=== PATIENT | female | born 1935 | race Caucasian/White ===

== ENCOUNTER 2018-07-22 14:44 | Outpatient (CLI) | payer MEDICARE, BC ==
[2018-07-22 16:28] LABS: #Eosinphils 0.2 thou/uL (0.0-0.7); #Monocytes 0.8 thou/uL (0.11-0.59); #Neutrophils 4.3 thou/uL (1.40-6.50); %Basophils 0.2 % (0.0-1.0); %Eosinophils 2.2 % (0.0-10.0); %Lymphocytes 36.3 % (21.0-51.0); %Neutrophils 51.3 % (42.0-75.0); Hemoglobin 13.5 g/dL (12.0-16.0); Mean Corpuscular HGB CONC 33.2 g/dL (32.0-36.0); Mean Corpuscular Hemoglobin 28.4 pg (27.0-31.0); Mean Corpuscular Volume 85.6 fL (78.0-98.0); Platelet Count 202 thou/uL (130-400); RBC Distribution Width 12.6 % (11.5-14.5); Red Blood Cell (RBC) Count 4.74 mill/uL (4.20-5.40); White Blood Cell (WBC) Count 8.3 thou/uL (4.8-10.8)
[2018-07-22 16:29] LABS: Bilirubin Negative (Negative); Blood, Urine Trace (Negative); Clarity CLEAR (Clear); Glucose, Urine (Dipstick) Negative (Negative); Leukocyte Trace (Negative); Nitrite Negative (Negative); Protein, Urine (Dipstick) Negative (Neg-Trace); Specific Gravity, Urine 1.017 (1.002-1.036); pH, Urine 6.5 (5.0-9.0)
[2018-07-22 16:31] LABS: Bacteria/HPF None Seen HPF (None Seen); Hyaline Casts/LPF 0-3 HYALINE CAST LPF (0-3 Hyaline); Pathc Cast-AUWi Flag 0.67 (0-2.49); Squamous Epithelial 0-3 HPF (0-3); WBC/HPF 0-3 HPF (0-3)
[2018-07-22 16:32] LABS: Prothrombin Time 13.5 SEC (12.0-14.7)
[2018-07-22 16:51] LABS: Anion Gap 15 mmol/L (10-20); BUN (Urea Nitrogen) 18 mg/dL (9.8-20.1); Calc. Creatinine Clearance 0 mL/min (70-130); Carbon Dioxide 23 mmol/L (23-31); Chloride 104 mmol/L (98-107); Estimated GFR-MDRD 65; Glucose 77 mg/dL (83-110); Potassium 3.9 mmol/L (3.5-5.1); Sodium 138 mmol/L (136-145)
== END 2018-07-22 14:45 | disposition home or self-care (01) ==
LOC: LABBT 14:44
PROVIDERS: ATTEND Orthopaedic Surgery
DX: Z01.818 Encounter for other preprocedural examination (principal); M17.11 Unilateral primary osteoarthritis, right knee
CPT/HCPCS: 80048; 81001; 85025; 85610; 93005; 93010

== ENCOUNTER 2018-07-29 08:07 | Inpatient (IN) | payer MEDICARE, BC ==
[2018-07-29] MEDS ORDERED: Tranexamic Acid 1,000 MG/10 ML VIAL ONE (08:39)
[2018-07-29] MEDS ORDERED: Midazolam HCl 2 mg/2 ml Vial ONE (08:45)
[2018-07-29] MEDS ORDERED: Vancomycin HCl 1.5 GM in Sodium Chloride 0.9% 250 ML 300 ML IVPB SCH (08:45)
[2018-07-29] MEDS ORDERED: Fentanyl 100 MCG/2 ML VIAL ONE ×3 (08:45→12:19)
[2018-07-29] MEDS ORDERED: Ketorolac Tromethamine 30 MG/ML VIAL IVP PRN (09:44)
[2018-07-29] MEDS ORDERED: traMADol HCl 50 MG TAB PO PRN (09:44)
[2018-07-29] MEDS ORDERED: Promethazine HCl 25 MG/ML VIAL IM PRN ×2 (09:44→09:52)
[2018-07-29] MEDS ORDERED: Ondansetron PF 4 MG/2 ML Vial IVP PRN ×2 (09:44→09:52)
[2018-07-29] MEDS ORDERED: Zolpidem Tartrate 5 MG TAB PO PRN ×2 (09:44→09:52)
[2018-07-29] MEDS ORDERED: HYDROcodone/Acetaminophen 7.5/325 mg Tablet PO PRN (09:45)
[2018-07-29] MEDS ORDERED: Fentanyl 100 MCG/2 ML VIAL SLOW IVP PRN (09:46)
[2018-07-29] MEDS ORDERED: Acetaminophen 325 MG TAB PO PRN (09:52)
[2018-07-29] MEDS ORDERED: diphenhydrAMINE 25 MG CAP PO PRN (09:52)
--- NOTE | 2018-07-29 12:03 | OP ---
DATE OF PROCEDURE: 07/29/2018 PREOPERATIVE DIAGNOSIS: Degenerative joint disease, right knee. POSTOPERATIVE DIAGNOSIS: Degenerative joint disease, right knee. MATERIAL LIAISON: Weston. BLOOD LOSS: Minimal. SPECIMEN: None. DRAIN: None. COMPLICATION: None. TOURNIQUET TIME: 45 minutes. IMPLANTS USED: [place] triathlon 4 femur, 3 tibia, 9 mm CS X3 polyethylene size 3, and A29 patella. PROCEDURE IN DETAIL: After informed consent was obtained in the preoperative holding area, the patient was taken to the operative suite where general anesthesia was induced. Once adequate level of general anesthesia was obtained, the patient was positioned and a well-padded tourniquet was placed around the right proximal thigh. The right lower extremity was then prepped and draped in the usual sterile fashion. Prior to exsanguination, a time-out was called and all members of the surgical team agreed upon site, surgeon, and patient. The extremity was then exsanguinated and the tourniquet was raised. A midline longitudinal incision was then made directly over the patella extending 2 fingerbreadths above the superior pole of the patella and 2 fingerbreadths inferior to the inferior patellar pole of the patella. Deeper subcutaneous layers were dissected sharply and local bleeding was controlled with Bovie electrocautery. A quad tendon longitudinal split was then made sharply and a median parapatellar arthrotomy was carried out both sharp and with Bovie electrocautery, carried down to 1 fingerbreadth medial to the tibial tubercle. The knee was then placed into flexion and the patella was everted nicely, and a copious fat pad ectomy was performed allowing for greater exposure of the tibia. The computer-assisted distal femoral fiducial was then placed and pinned firmly, and the distal femoral cutting guide was pinned firmly into place. The oscillating saw was then used to remove the appropriate amount of bone. The 4-in-1 cutting block was then placed on the distal femur and the oscillating saw was used to remove the appropriate amount of bone off the anterior, posterior, and chamfer cuts. After completion of bone cuts, the anterior cruciate ligament was resected sharply and the posterior cruciate ligament retractor was placed and the tibia was subluxed for better exposure. Partial meniscectomies were carried out, and the tibial computer-assisted fiducial was pinned, and the cutting guide was placed. Oscillating saw was then used to remove the bone, with Hohmann retractors used to take care and protect the collateral ligaments. After the tibial resection was performed, a laminar rrt was placed in between the freshened bone cuts. The knee placed at 90 degrees and further bilateral meniscectomies were carried out, and the curved osteotome and curettage were used to remove any excess bone spurs in the posterior compartment. The trial femoral component, tibial baseplate were placed with the appropriate polyethylene trial insert with an appropriate polyethylene spacer and patellar button. The knee was taken through full range of motion with flexion and extension from 0 to 90 degrees and patellar broach squarely in the trochlea without any squinting or subluxation noted. The knee was also stable to varus and valgus stressing at 0, 15, 45, and 90 degrees of flexion. The drawer was negative. All trial components were then removed and the keel punch was used to provide the appropriate defect in the tibia with a mallet. The freshened bone cuts were copiously irrigated with pulsatile lavage of about 1.5 L to remove all excess debris. The freshened bone cuts were then dried with suction and lap sponge. The knee was placed in flexion and retractors were placed to provide access to all bone cuts. Tobramycin-impregnated methyl methacrylate cement was then placed on the freshened bone cuts and implants which were malleted firmly into place. Curettage and [place]ga elevators were used to remove any excess bone cement. The knee was placed into full extension and the patellar button was placed under compression, and the cement was allowed to cure. Once completed, the components were again taken through full range of motion and copious irrigation of the knee was carried out with another liter of normal saline. All components were inspected fully with full range of motion and varus and valgus stressing. There was no laxity noted and full extension was observed clinically. Primary closure was accomplished with #2 interrupted Vicryl stitch of the arthrotomy defect. This was oversewn with a #2 running Quill barbed stitch. The gravitational platelet system was then injected into the arthrotomy prior to closure. The subcutaneous layer was then closed with a running 0 barbed Monocryl stitch and skin closure accomplished with a running subcuticular 3-0 Monocryl barbed Quill stitch and augmented with cement on the skin. Tourniquet was lowered. Good spontaneous return of distal pulses was noted clinically and a sterile dressing was applied to the incision. The procedure was terminated without any complications. The patient was awakened in the operative suite and the was removed, and the patient was taken to the recovery room in stable condition. Job ID: [id number]
[2018-07-29] MEDS ORDERED: Ketorolac Tromethamine 30 MG/ML VIAL ONE (12:19)
[2018-07-29] MEDS ORDERED: Ropivacaine 0.5% HCl/PF (150 MG/30 ML VIAL) ONE (12:58)
[2018-07-29] MEDS ORDERED: Ropivacaine 0.2% HCl/PF (40 MG/20 ML VIAL) ONE (12:58)
--- NOTE | 2018-07-29 12:59 | RAD ---
RIGHT KNEE 2 VIEWS: HISTORY: Total knee arthroplasty, postop FINDINGS: There are recent postoperative changes of total knee arthroplasty in good position and alignment. Sof t tissue air is present.
[2018-07-29] MEDS ORDERED: Ondansetron PF 4 MG/2 ML Vial ONE (13:43)
[2018-07-29] MEDS ORDERED: PROPOFOL 200 MG/20 ML VIAL ONE (13:43)
[2018-07-29] MEDS ORDERED: Lidocaine 1% PF 5 ML VIAL ONE (13:43)
[2018-07-29] MEDS: Sodium Chloride 0.9% 1,000 ML IV SCH ×2 (14:51→16:40)
[2018-07-29] MEDS: CEFAZOLIN 2 GM in Premix Bag 1 BAG IVPB SCH (16:39)
[2018-07-29] MEDS: Aspirin 81 mg Enteric Coated Tablet PO SCH (21:05)
[2018-07-29] MEDS: Atorvastatin Calcium 10 MG TAB PO SCH (21:05)
[2018-07-29] MEDS: Flecainide 50 MG TAB PO SCH (21:06)
[2018-07-30] MEDS: CEFAZOLIN 2 GM in Premix Bag 1 BAG IVPB SCH (00:05)
[2018-07-30] MEDS: traMADol HCl 50 MG TAB PO PRN (04:12)
[2018-07-30] MEDS: Sodium Chloride 0.9% 1,000 ML IV SCH (05:31)
[2018-07-30] MEDS: HYDROcodone/Acetaminophen 7.5/325 mg Tablet PO PRN ×3 (06:15→17:55)
[2018-07-30 07:43] LABS: Hemoglobin 11.2 g/dL (12.0-16.0); Mean Corpuscular HGB CONC 33.1 g/dL (32.0-36.0); Mean Corpuscular Hemoglobin 28.8 pg (27.0-31.0); Mean Corpuscular Volume 87.2 fL (78.0-98.0); Mean Platelet Volume 6.9 fL (7.4-10.4); Platelet Count 155 thou/uL (130-400); RBC Distribution Width 12.3 % (11.5-14.5)
[2018-07-30] MEDS ORDERED: Benzonatate 100 MG CAP PO PRN (08:46)
[2018-07-30] MEDS ORDERED: hydrALAZINE 20 MG/ML VIAL SLOW IVP PRN (08:46)
[2018-07-30] MEDS ORDERED: Cepastat Lozenges 1 LOZ PO PRN (08:46)
[2018-07-30] MEDS ORDERED: Calcium Carbonate 500 MG ChewTAB PO PRN (08:46)
[2018-07-30] MEDS ORDERED: cloNIDine 0.1 MG TAB PO PRN (08:46)
[2018-07-30] MEDS ORDERED: Bisacodyl 5 MG TAB PO PRN (08:46)
[2018-07-30] MEDS ORDERED: Diabetic Tussin 200 MG/10 ML UDCUP PO PRN (08:46)
[2018-07-30] MEDS ORDERED: Aspirin 81 mg Enteric Coated Tablet PO SCH (09:00)
[2018-07-30] MEDS: Ferrous Gluconate 324 MG TAB PO SCH ×2 (09:11→17:16)
[2018-07-30] MEDS: Flecainide 50 MG TAB PO SCH ×2 (09:56→20:23)
[2018-07-30] MEDS: Aspirin 81 mg Enteric Coated Tablet PO SCH ×2 (09:57→20:23)
[2018-07-30] MEDS: Senokot S 8.6-50 MG TAB PO SCH ×2 (09:57→20:23)
[2018-07-30] MEDS: Triamterene/Hydrochlorothiazide 37.5 mg/25 mg Tablet PO SCH (09:58)
[2018-07-30] MEDS: Multivitamin W/ Minerals 1 TAB PO SCH (09:58)
--- NOTE | 2018-07-30 10:31 | PRG ---
DATE OF SERVICE: 07/30/2018 SUBJECTIVE: Mariana is an 83-year-old female, who is postop day #1 from right total knee arthroplasty. I believe inpatient rehabilitation had already been consulted on this patient and that is the plan for her at the time of transfer. OBJECTIVE: VITAL SIGNS: Temperature 98.1, pulse 58, respiratory rate 14 and nonlabored, and blood pressure is 128/70. GENERAL: She is alert and oriented to person, place, time and situation, grossly nonfocal, appropriate and conversant with examiner. EXTREMITIES: Her incision is clean without erythema and she is neurovascularly intact in the right lower extremity. : Moffett is still intact. She does admit to having some little bit of constipation for the last couple of days and requests something to make her bowels move. IMPRESSION: 1. This is an 83-year-old female, postop day #1 right total knee arthroplasty. 2. Mild constipation. PLAN: Continue current care. Transfer on postop day #3. Job ID: [id number]
[2018-07-30] MEDS: Ropivacaine HCl/PF 250 ML in Premix Bag 1 BAG NERVE BLCK SCH (11:47)
--- NOTE | 2018-07-30 12:49 | PDOC.PN ---
- Subjective Encounter Start Date: 07/30/18 Encounter Start Time: 12:48 Subjective: s/p R TKR.seen during PT and c/o significant knee pain -: IM team consulted for medical managemant -: PCP is Dr. harris and laborer electroplating is Dr.Bao Rush - Objective MAR Reviewed: Yes Vital Signs & Weight: Vital Signs (12 hours) Temp Pulse Resp BP Pulse Ox 07/30/18 08:30 95 07/30/18 08:11 98.1 F 58 L 14 128/70 95 07/30/18 04:19 98.3 F 64 16 119/71 95 Weight Admit Weight 187 lb Weight 187 lb I&O: 07/29/18 07/30/18 07/31/18 06:59 06:59 06:59 Intake Total 2900 Output Total 725 Balance 2175 Result Diagrams: 07/30/18 07:25 Additional Labs: Microbiology 07/22/18 15:48 Mrsa Scrn Axilla,Groin,Nares Nasal Screen MRSA/MSSA - Final 07/22/18 15:48 Mrsa Scrn Axilla,Groin,Nares MRSA Screen - Final Negative--No MRSA Colonization Negative--No MRSA Colonization Negative--No MRSA Colonization Laboratory Tests 07/22/18 07/30/18 15:48 07:25 Hgb 13.5 11.2 L Phys Exam - Physical Examination Constitutional: NAD HEENT: PERRLA, moist MMs, sclera anicteric, oral pharynx no lesions Neck: no nodes, no JVD, supple, full ROM Respiratory: no wheezing, no rales, no rhonchi, clear to auscultation bilateral Cardiovascular: RRR, no significant murmur Gastrointestinal: soft, non-tender, no distention, positive bowel sounds Musculoskeletal: no edema, pulses present Neurological: non-focal, normal sensation, moves all 4 limbs Psychiatric: normal affect, A&O x 3 Skin: no rash Dx/Plan (1) Chronic atrial fibrillation Code(s): I48.2 - CHRONIC ATRIAL FIBRILLATION Status: Chronic Comment: stable. NSR.cont Flecainide and Toprol XL.monitor clinically (2) H/O supraventricular tachycardia Code(s): Z86.79 - PERSONAL HISTORY OF OTHER DISEASES OF THE CIRCULATORY SYSTEM Status: Chronic (3) MVP (mitral valve prolapse) Code(s): I34.1 - NONRHEUMATIC MITRAL (VALVE) PROLAPSE Status: Chronic (4) HTN (hypertension) Code(s): I10 - ESSENTIAL (PRIMARY) HYPERTENSION Status: Chronic Comment: cont maxzide,Toprol.add prn antihypertensives (5) GERD (gastroesophageal reflux disease) Code(s): K21.9 - GASTRO-ESOPHAGEAL REFLUX DISEASE WITHOUT ESOPHAGITIS Status: Chronic (6) S/P TKR (total knee replacement) Code(s): Z96.659 - PRESENCE OF UNSPECIFIED ARTIFICIAL KNEE JOINT Status: Acute Qualifiers: Laterality: right Qualified Code(s): Z96.651 - Presence of right artificial knee joint - Plan plan discussed w/ family, DVT proph w/SCDs add pain meds. HD stable -: cont home meds -: AM labs. follow H/H.expected drop today post-op -: IM team will follow * . Review of Systems - Review of Systems Constitutional: negative: fever, chills, sweats, weakness, malaise, other ENT: negative: Ear Pain, Ear Discharge, Nose Pain, Nose Discharge, Nose Congestion, Mouth Pain, Mouth Swelling, Throat Pain, Throat Swelling, Other Respiratory: negative: Cough, Dry, Shortness of Breath, Hemoptysis, SOB with Excertion, Pleuritic Pain, Sputum, Wheezing Cardiovascular: negative: chest pain, palpitations, orthopnea, paroxysmal nocturnal dyspnea, edema, light headedness, other Gastrointestinal: negative: Nausea, Vomiting, Abdominal Pain, Diarrhea, Constipation, Melena, Hematochezia, Other Genitourinary: negative: Dysuria, Frequency, Incontinence, Hematuria, Retention , Other Musculoskeletal: Other (knee pain). negative: Neck Pain, Shoulder Pain, Arm Pain, Back Pain, Hand Pain, Leg Pain, Foot Pain Skin: negative: Rash, Lesions, Kevin, Bruising, Other Neurological: negative: Weakness, Numbness, Incoordination, Change in Speech, Confusion, Seizures, Other - Medications/Allergies Allergies/Adverse Reactions: Allergies Allergy/AdvReac Type Severity Reaction Status Date / Time No Known Allergies Allergy Verified 07/22/18 15:01 Medications: Current Medications Acetaminophen (Tylenol) 650 mg PO Q4H PRN PRN Reason: Headache/Fever or Pain Last Admin: 07/30/18 00:09 Dose: 650 mg Hydrocodone Bitart/Acetaminophen ([place] 7.5/325) 1 tab PO Q4H PRN PRN Reason: Mild Pain (1-3) Hydrocodone Bitart/Acetaminophen ([place] 7.5/325) 2 tab PO Q4H PRN PRN Reason: Moderate Pain (4-6) Last Admin: 07/30/18 06:15 Dose: 2 tab Aspirin (Ecotrin) 81 mg PO BID [facility] Last Admin: 07/30/18 09:57 Dose: 81 mg Atorvastatin Calcium (Lipitor) 10 mg PO HS [facility] Last Admin: 07/29/18 21:05 Dose: 10 mg Benzonatate (Tessalon) 100 mg PO Q6H PRN PRN Reason: Cough Bisacodyl (Dulcolax) 10 mg PO DAILYPRN PRN PRN Reason: Constipation Calcium Carbonate (Tums) 1,000 mg PO Q4H PRN PRN Reason: Heartburn or Indigestion Clonidine (Catapres) 0.1 mg PO Q4H PRN PRN Reason: SBP > 160____ Diphenhydramine HCl (Benadryl) 25 mg PO Q6H PRN PRN Reason: Itching Fentanyl (Sublimaze) 50 mcg SLOW IVP Q1H PRN PRN Reason: breakthrough pain Ferrous Gluconate (Fergon) 324 mg PO BID[facility] Last Admin: 07/30/18 09:11 Dose: 324 mg Flecainide Acetate (Tambocor) 50 mg PO BID [facility] Last Admin: 07/30/18 09:56 Dose: 50 mg Guaifenesin (Robitussin Sf) 200 mg PO Q4H PRN PRN Reason: Cough Hydralazine HCl (Apresoline) 10 mg SLOW IVP Q4H PRN PRN Reason: SBP > 180 and HR < 70 Vancomycin HCl 1.5 gm/ Sodium (Chloride) 300 mls @ 200 mls/hr IVPB ONCALL-OR [facility] Ropivacaine 250 ml/ Device 250 mls @ 10 mls/hr NERVE BLCK INF [facility] Last Admin: 07/30/18 11:47 Dose: 250 mls Iron/Minerals/Multivitamins (Theragran M) 1 tab PO DAILY [facility] Last Admin: 07/30/18 09:58 Dose: 1 tab Ketorolac Tromethamine (Toradol) 15 mg IVP Q6H PRN PRN Reason: Moderate Pain (4-6) Stop: 08/01/18 09:45 Ondansetron HCl (Zofran) 4 mg IVP Q6H PRN PRN Reason: Nausea/Vomiting Promethazine HCl (Phenergan) 12.5 mg IM Q4H PRN PRN Reason: Nausea/Vomiting Senna/Docusate Sodium (Senokot S) 2 tab PO BID [facility] Last Admin: 07/30/18 09:57 Dose: 2 tab Sodium Chloride (Flush - Normal Saline) 10 ml IVF PRN PRN PRN Reason: Saline Flush Throat Lozenges (Cepastat Lozenges) 1 shorty PO Q2H PRN PRN Reason: Sore Throat Tramadol HCl (Ultram) 50 mg PO Q6H PRN PRN Reason: Mild Pain (1-3) Last Admin: 07/29/18 16:41 Dose: 50 mg Tramadol HCl (Ultram) 100 mg PO Q6H PRN PRN Reason: Moderate Pain 4-6 Last Admin: 07/30/18 04:12 Dose: 100 mg Triamterene/HCTZ (Maxzide-25) 1 tab PO QAM [facility] Last Admin: 07/30/18 09:58 Dose: 1 tab Zolpidem Tartrate (Ambien) 5 mg PO HSPRN PRN PRN Reason: Insomnia
[2018-07-30] MEDS: Atorvastatin Calcium 10 MG TAB PO SCH (20:23)
[2018-07-31 04:28] LABS: Hemoglobin 11.7 g/dL (12.0-16.0); Mean Corpuscular Hemoglobin 30.6 pg (27.0-31.0); Mean Corpuscular Volume 87.4 fL (78.0-98.0); Mean Platelet Volume 6.8 fL (7.4-10.4); Platelet Count 143 thou/uL (130-400); RBC Distribution Width 12.5 % (11.5-14.5); Red Blood Cell (RBC) Count 3.81 mill/uL (4.20-5.40); White Blood Cell (WBC) Count 9.8 thou/uL (4.8-10.8)
[2018-07-31 04:45] LABS: Anion Gap 10 mmol/L (10-20); BUN (Urea Nitrogen) 9 mg/dL (9.8-20.1); Calc. Creatinine Clearance 76 mL/min (70-130); Calcium 9.3 mg/dL (7.8-10.44); Carbon Dioxide 30 mmol/L (23-31); Chloride 101 mmol/L (98-107); Estimated GFR-MDRD 75; Glucose 89 mg/dL (83-110); Sodium 137 mmol/L (136-145)
[2018-07-31] MEDS: HYDROcodone/Acetaminophen 7.5/325 mg Tablet PO PRN (06:54)
[2018-07-31] MEDS: Flecainide 50 MG TAB PO SCH ×2 (09:01→20:11)
[2018-07-31] MEDS: Triamterene/Hydrochlorothiazide 37.5 mg/25 mg Tablet PO SCH (09:01)
[2018-07-31] MEDS: Multivitamin W/ Minerals 1 TAB PO SCH (09:01)
[2018-07-31] MEDS: Senokot S 8.6-50 MG TAB PO SCH ×2 (09:02→20:11)
[2018-07-31] MEDS: Ferrous Gluconate 324 MG TAB PO SCH ×2 (09:02→17:46)
[2018-07-31] MEDS: traMADol HCl 50 MG TAB PO PRN ×2 (09:09→14:21)
[2018-07-31] MEDS: Aspirin 81 mg Enteric Coated Tablet PO SCH ×2 (14:21→20:12)
[2018-07-31] MEDS: Ropivacaine HCl/PF 250 ML in Premix Bag 1 BAG NERVE BLCK SCH (14:27)
--- NOTE | 2018-07-31 15:13 | PDOC.EVN ---
Event Note - Event Note Event Note: Went to see pt but she is engaged in Group PT on [facility] floor chart reviewed. VSS and Lab WNL w mild drop in H/H Cont care as outlined yesterday. no changes made Ok to DC form IM stand point when Ok w Primary team Will follow
[2018-07-31 16:50] VITALS: BMI 36.5
[2018-07-31] MEDS: Atorvastatin Calcium 10 MG TAB PO SCH (20:11)
[2018-08-01] MEDS: traMADol HCl 50 MG TAB PO PRN ×2 (06:14→12:15)
[2018-08-01 06:29] LABS: Hemoglobin 11.5 g/dL (12.0-16.0); Mean Corpuscular HGB CONC 33.8 g/dL (32.0-36.0); Mean Corpuscular Hemoglobin 29.3 pg (27.0-31.0); Mean Corpuscular Volume 86.8 fL (78.0-98.0); Mean Platelet Volume 7.1 fL (7.4-10.4); Platelet Count 163 thou/uL (130-400); RBC Distribution Width 12.4 % (11.5-14.5); Red Blood Cell (RBC) Count 3.92 mill/uL (4.20-5.40); White Blood Cell (WBC) Count 8.5 thou/uL (4.8-10.8)
[2018-08-01 07:39] VITALS: BP 136/80; TEMP 97.6
[2018-08-01] MEDS: Senokot S 8.6-50 MG TAB PO SCH (08:08)
[2018-08-01] MEDS: Multivitamin W/ Minerals 1 TAB PO SCH (08:08)
[2018-08-01] MEDS: Triamterene/Hydrochlorothiazide 37.5 mg/25 mg Tablet PO SCH (08:08)
[2018-08-01] MEDS: Aspirin 81 mg Enteric Coated Tablet PO SCH (08:08)
[2018-08-01] MEDS: Ferrous Gluconate 324 MG TAB PO SCH (08:09)
[2018-08-01] MEDS: Flecainide 50 MG TAB PO SCH (12:15)
--- NOTE | 2018-08-01 19:18 | PDOC.EVN ---
Event Note - Event Note Event Note: Pt discharged by primary team.OK to DC from IM stand point.chart reviewed
== END 2018-08-01 15:21 | DRG 470 ==
LOC: SDC 08:07 → SJJU 09:52
PROVIDERS: ADMIT Orthopaedic Surgery; ATTEND Orthopaedic Surgery
PROC: 0SRC0J9 Replacement of Right Knee Joint with Synthetic Substitute, Cemented, Open Approach (ICD-10-PCS; principal; 2018-07-29)
DX: M17.11 Unilateral primary osteoarthritis, right knee (principal); K21.9 Gastro-esophageal reflux disease without esophagitis; I10 Essential (primary) hypertension; I48.2 Chronic atrial fibrillation; I34.1 Nonrheumatic mitral (valve) prolapse; Z96.652 Presence of left artificial knee joint; K59.00 Constipation, unspecified; Z86.79 Personal history of other diseases of the circulatory system
CPT/HCPCS: 36415; 80048; 85027; 86850; 86900; 86901; 87081; C1713; C1776; J0131; J0690; J1885; J2001; J2250; J2405; J2704; J2795; J3010; J3370; J7050